=== PATIENT | male | born 1940 | race Two or more races ===

== ENCOUNTER 2020-01-23 15:01 | Emergency (ER) | payer OTHER ==
[~2020-01-23] VITALS: Ht 170.2 cm; Wt 84.4 kg
[~2020-01-23 15:01] MED LIST: ANTIVERT25 MG PO; AZITHROMYCIN250 MG PO; FIORICET 50-301 EACH; HYZAAR 100-121 UDTAB; TENCON CAPSULE1 CAP PO; TUSSIONEX PENNKI5 ML PO
[2020-01-23] MEDS ORDERED: AMLODIPINE-OLM1 EAC2 (15:22)
[2020-01-23] MEDS ORDERED: ATACAND16 MG (15:23)
== END 2020-01-23 21:14 | disposition home or self-care (01) ==
LOC: ER 15:01
DX: R42 Dizziness and giddiness (principal); I10 Essential (primary) hypertension

== ENCOUNTER 2021-03-31 11:20 | Emergency (ER) | payer OTHER ==
[~2021-03-31] VITALS: Ht 170.2 cm; Wt 83.0 kg
[~2021-03-31 11:20] MED LIST changes: +AMLODIPINE-OLM1 EAC2; +ATACAND16 MG
== END 2021-03-31 15:37 | disposition home or self-care (01) ==
LOC: ER 11:20
DX: R42 Dizziness and giddiness (principal)

== ENCOUNTER 2023-06-04 08:20 | Emergency (ER) | payer OTHER ==
[~2023-06-04] VITALS: Ht 170.2 cm; Wt 89.8 kg
[2023-06-04 09:13] LABS: URINE APPEARANCE Clear; URINE BILIRRUBIN Negative (NEGATIVE); URINE BLOOD Negative; URINE COLOR Yellow; URINE GLUCOSE Negative (NEGATIVE); URINE LEUKOCYTE Small; URINE NITRATE Negative; URINE PROTEIN Negative (NEGATIVE); URINE UROBILINOGEN 0.2 E.U./dl
[2023-06-04 09:16] LABS: URINE BACTERIA 41.5 uL (0.0-1933); URINE EPITHELIAL CELLS 3.8 uL (0.0-38.8); URINE RBC 2.1 uL (0.0-20.8); URINE WBC 198.7 uL (0.0-23.2)
[2023-06-04 09:38] LABS: HEMOGLOBIN 11.9 g/dL (13-16.00); MEAN CELL VOLUME 88.6 fL (80.0-100.00); MEAN CORPUSCULAR HEMOGLOBIN 28.5 pg (27.00-32.0); MEAN CORPUSCULAR HGB CONC 32.2 g/dl (32.0-36.0); RED BLOOD COUNT 4.18 M/uL (4.00-6.00); RED CELL DISTRIBUTION WIDTH 12.6 % (11.5-14.5)
[2023-06-04 09:50] LABS: ALBUMIN 3.5 gm/dL (3.4-5.0); BILIRUBIN TOTAL 0.9 mg/dL (0.3-1.2); CALCIUM 8.4 mg/dL (8.5-10.1); CREATININE SERUM 1.55 mg/dL (0.70-1.30); GFR 43.25; GLOBULINA 2.6 G/DL (2.4-3.5); POTASSIUM 4.42 mEq/L (3.5-5.1); TOTAL PROTEIN 6.1 gm/dL (6.4-8.2)
[2023-06-04 11:03] LABS: PLATELET COUNT 177 K/uL (150-450)
[2023-06-04 11:47] LABS: ABG PH 7.423 (7.35-7.45); ABG PO2 78.7 mmHg (80-100); BASE EXCESS -0.4 mmol/l; BICARBONATE 23.6 mmol/l (23-25); SaO2 95.8 %; Tco2 24.8 mmol/l; o2 21 %
[2023-06-04 11:48] LABS: allen test SATISFACTORY; puncture site RADIAL RIGHT
== END 2023-06-04 11:43 | disposition home or self-care (01) ==
LOC: ER
PROVIDERS: General Practice
DX: U07.1 COVID-19 (principal); E11.9 Type 2 diabetes mellitus without complications; I10 Essential (primary) hypertension

== ENCOUNTER → 2023-11-02 08:32 | Outpatient (CLI) | payer OTHER ==
[2023-11-02 09:43] LABS: CREATININE SERUM 1.57 mg/dL (0.70-1.30)
== END | disposition home or self-care (01) ==
LOC: LAB 08:32
PROVIDERS: ATTEND Radiology Diagnostic Radiology
DX: R21 Rash and other nonspecific skin eruption (principal); L29.9 Pruritus, unspecified; E11.8 Type 2 diabetes mellitus with unspecified complications; R39.16 Straining to void

== ENCOUNTER 2023-11-02 10:37 | Outpatient (CLI) | payer OTHER | END 2023-11-02 10:43 | disposition home or self-care (01) | LOC: TOM 10:37 | PROVIDERS: ATTEND General Practice | DX: R10.9 Unspecified abdominal pain (principal) | CPT/HCPCS: 74177; Q9965 ==

== ENCOUNTER 2024-09-20 11:11 | Emergency (ER) | payer OTHER ==
[~2024-09-20] VITALS: Ht 170.2 cm; Wt 81.6 kg
[~2024-09-20 11:11] MED LIST changes: +JANUMET 50-1,01 EACH PO; +LIPITOR40 M1 PO
[2024-09-20] MEDS ORDERED: 0.9 % SODIUM CHLORIDE 1,000 ML IV SCH (12:45)
[2024-09-20 13:11] LABS: URINE APPEARANCE Clear; URINE BILIRRUBIN Negative (NEGATIVE); URINE BLOOD Negative; URINE COLOR Yellow; URINE KETONE Negative (NEGATIVE); URINE LEUKOCYTE Negative; URINE NITRATE Negative; URINE PROTEIN Negative (NEGATIVE); URINE UROBILINOGEN 0.2 E.U./dl
[2024-09-20 13:12] LABS: URINE BACTERIA 20.7 uL (0.0-1933); URINE EPITHELIAL CELLS 4.2 uL (0.0-38.8)
[2024-09-20 13:15] LABS: URINE GLUCOSE >=1000 MG/DL (NEGATIVE); URINE RBC 0.5 uL (0.0-20.8); URINE WBC 1.4 uL (0.0-23.2)
[2024-09-20 13:34] LABS: HEMATOCRIT 46.7 % (39.0-48.0); HEMOGLOBIN 15.2 g/dL (13-16.00); MEAN CELL VOLUME 88.2 fL (80.0-100.00); MEAN CORPUSCULAR HEMOGLOBIN 28.6 pg (27.00-32.0); MEAN CORPUSCULAR HGB CONC 32.4 g/dl (32.0-36.0); PLATELET COUNT 241 K/uL (150-450); RED CELL DISTRIBUTION WIDTH 13.2 % (11.5-14.5)
[2024-09-20 14:09] LABS: INR 0.98; PARTIAL THROMBOPLASTIN TIME 29.1 SECONDS (22.0-34.0); PROTHROMBIN TIME 10.7 SECONDS (9.0-11.5)
[2024-09-20 14:46] LABS: CALCIUM 10.1 mg/dL (8.5-10.1); CKMB 1.5 NG/ML (0.5-3.6); CREATININE SERUM 1.56 mg/dL (0.70-1.30); GFR 42.82; POTASSIUM 5.41 mEq/L (3.5-5.1)
[2024-09-20 15:36] VITALS: BP 148/76; O2SAT 96
== END 2024-09-20 15:41 | disposition home or self-care (01) ==
LOC: ER 11:13
PROVIDERS: Emergency Medicine
DX: R53.1 Weakness (principal); R07.89 Other chest pain; I10 Essential (primary) hypertension